=== PATIENT | female | born 1985 | race Caucasian/White ===

== ENCOUNTER 2017-03-10 17:49 | Emergency (ER) | payer OTHER ==
[~2017-03-10] VITALS: Ht 162.6 cm; Wt 58.5 kg
[2017-03-10 17:55] VITALS: Ht 162.6 cm; Wt 58.5 kg
[2017-03-10] MEDS ORDERED: ACETAMINOPHEN 325 MG TAB PO ONE (18:30)
[2017-03-10] MEDS ORDERED: IBUPROFEN 600 MG TAB PO ONE (18:30)
[2017-03-10 18:37] LABS: URINE BLOOD (Dip) POC 1+ (NEGATIVE)
[2017-03-10] MEDS ORDERED: ONDANSETRON (ODT) 4 MG TAB ODT STA (18:43)
[2017-03-10] MEDS ORDERED: CIPR500T4 PO (18:46)
[2017-03-10] MEDS ORDERED: ACET500C5 PO (18:46)
[2017-03-10] MEDS ORDERED: IBUP-1542 PO (18:46)
[2017-03-10] MEDS ORDERED: ONDA4TAB14 PO (18:46)
--- NOTE | 2017-03-10 18:46 | ERD ---
ER Documentation Chief Complaint Chief Complaint Blood in the urine x 3 day, foul smell HPI 32-year-old female presents here in emergency department for complaints of blood in the urine for 3 days, dysuria, burning pain, 4/10 scale, accompanied with hematuria and foul-smelling urine. ROS All systems reviewed and are negative except as per history of present illness. Medications Home Meds Active Scripts Ciprofloxacin Hcl* (Ciprofloxacin Hcl*) 500 Mg Tablet, 500 MG PO BID for 10 Days , TAB Prov:MOHAN GONZALEZ NP 03/10/17 Ondansetron (Ondansetron Odt) 4 Mg Tab.rapdis, 4 MG PO Q6H Y for NAUSEA AND/OR VOMITING, #10 TAB Prov:MOHAN GONZALEZ NP 03/10/17 Ibuprofen* (Motrin*) 600 Mg Tab, 600 MG PO Q6H Y for PAIN AND OR ELEVATED TEMP, #30 TAB Prov:MOHAN GONZALEZ NP 03/10/17 Acetaminophen* (Tylophen*) 500 Mg Capsule, 1 CAP PO Q6H Y for PAIN AND OR ELEVATED TEMP, #20 CAP Prov:MOHAN GONZALEZ NP 03/10/17 Reported Medications [none] Unknown Strength No Conflict Check 03/10/17 Allergies Allergies: Coded Allergies: amoxicillin (Unverified Allergy, Unknown, 03/10/17) PMhx/Soc Medical and Surgical Hx: pt denies Medical Hx, pt denies Surgical Hx Hx Alcohol Use: No Hx Substance Use: No Hx Tobacco Use: No FmHx Family History: No coronary disease, No diabetes, No other Physical Exam Vitals Vital Signs Date Time Temp Pulse Resp B/P Pulse Ox O2 Delivery O2 Flow Rate FiO2 03/10/17 17:55 100.1 121 20 139/98 99 Physical Exam GENERAL: The patient is well developed and appropriate for usual state of health, in no apparent distress. CHEST: Clear to auscultation bilaterally. There are no rales, wheezes or rhonchi. HEART: Regular rate and rhythm. No murmurs, clicks, rubs or gallops. No S3 or S4. ABDOMEN: Soft, nontender and nondistended. Good bowel sounds. No rebound or guarding. No gross peritonitis. No gross organomegaly or masses. No Cormier sign or McBurney point tenderness. BACK: No midline or flank tenderness. EXTREMITIES: Equal pulses bilaterally. There is no peripheral clubbing, cyanosis or edema. No focal swelling or erythema. Full range of motion. Grossly neurovascularly intact. NEURO: Alert and oriented. Cranial nerves 2-12 intact. Motor strength in all 4 extremities with 5/5 strength. Sensation grossly intact. Normal speech and gait. SKIN: There is no apparent rash or petechia. The skin is warm and dry. HEMATOLOGIC AND LYMPHATIC: There is no evidence of excessive bruising or lymphedema. No gross cervical, axillary, or inguinal lymphadenopathy. Results 24 hrs Laboratory Tests Test 03/10/17 18:39 Bedside Urine pH (LAB) 5.5 Bedside Urine Protein (LAB) Negative Bedside Urine Glucose (UA) Negative Bedside Urine Ketones (LAB) Negative Bedside Urine Blood 1+ Bedside Urine Nitrite (LAB) Negative Bedside Urine Leukocyte Esterase (L 1+ Current Medications Medications (Trade) Dose Ordered Sig/Tanika Route PRN Reason Start Time Stop Time Status Last Admin Dose Admin Ibuprofen (Motrin) 600 mg ONCE ONCE PO 03/10/17 18:30 03/10/17 18:31 DC 03/10/17 18:41 Acetaminophen (Tylenol Tab) 650 mg ONCE ONCE PO 03/10/17 18:30 03/10/17 18:31 DC 03/10/17 18:41 Ondansetron HCl (Zofran Odt) 4 mg ONCE STAT ODT 03/10/17 18:43 03/10/17 18:47 DC 03/10/17 19:01 Patient was given medicines for fever control here in the emergency department. After treatment, patient temperature improved and lower. Patient appears well and is hemodynamically stable. Procedures/MDM Medical Decision Making: Patients symptoms are consistent with urinary tract infection. There is low suspicion for pyelonephritis. There is low suspicion for abdominal emergencies at this time. Patients abdominal exam is normal. There is low suspicion for sepsis. Patient appears well and is hemodynamically stable. Disposition: Home. Stable Prescription ciprofloxacin, Pyridium, ibuprofen Tylenol Instructions: Patient is advised to take medications as prescribed. Patient is advised to rest, increase fluid intake and do good perineal hygiene. Patient is advised that if symptoms are worse, severe abdominal pain, uncontrolled vomiting , high fever, severe flank pain, worst signs and symptoms, to return to the emergency department immediately. Otherwise, patient can follow up with primary care doctor in 5-7 days. Disclaimer: Inadvertent spelling and grammatical errors are likely due to EHR/ dictation software use and do not reflect on the overall quality of patient care. Also, please note that the electronic time recorded on this note does not necessarily reflect the actual time of the patient encounter. Departure Diagnosis: Primary Impression: UTI (urinary tract infection) Urinary tract infection type: acute cystitis Hematuria presence: without hematuria Qualified Code: N30.00 - Acute cystitis without hematuria Condition: Stable Patient Instructions: Understanding Urinary Tract Infections (UTIs) Additional Instructions: Patient is advised to take medications as prescribed. Patient is advised to rest , increase fluid intake and do good perineal hygiene. Patient is advised that if symptoms are worse, severe abdominal pain, uncontrolled vomiting, high fever , severe flank pain, worst signs and symptoms, to return to the emergency department immediately. Otherwise, patient can follow up with primary care doctor in 5-7 days. MOHAN GONZALEZ NP Mar 10, 2017 18:46
== END 2017-03-10 19:00 | disposition home or self-care (01) ==
LOC: FTE 17:49
DX: N30.01 Acute cystitis with hematuria (principal)
CPT/HCPCS: 81003; Z7502; Z7610; 99284

== ENCOUNTER 2017-05-26 13:40 | Emergency (ER) | END 2017-05-26 17:48 | disposition home or self-care (01) ==